=== PATIENT | male | born 2000 | race Caucasian/White ===

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

== ENCOUNTER 2018-11-29 18:21 | Emergency (ER) | payer OTHER ==
--- OUTSIDE RECORDS SUMMARY | 2018-11-29 18:31 | XMS REPORT | Summary of Care ---
:2000 Author Organization [facility] Address [address] [facility] [address] [place] [address] Care Team Providers Name Role Phone None, [place] Primary Care Provider Unavailable Reason for Visit Reason Comments Follow Up here for 4 mnth follow up; denies any complaints; things going good. Encounter Details Date Type Department Care Team Description 11/09/2018 Office Visit [facility] Kris Hope, [facility] [address] [facility] (Primary Dx) [address] [place], [place] [id number] [place] [address] [phone] Allergies Active Allergy Reactions Severity Noted Date Comments No Known Allergies Other 02/18/2008 documented as of this encounter (statuses as of 11/09/2018) Medications Medication Sig Dispensed Refills Start Date End Date Status venlafaxine Take 1 Cap 90 Cap 3 11/09/2018 Active (EFFEXOR XR) 75 by mouth MG Oral CAPSULE DAILY. SR 24 HRIndications: Anxiety and depression venlafaxine Take 1 Cap 120 Cap 0 07/13/2018 11/09/2018 Discontinued (EFFEXOR XR) 75 by mouth (Reorder) MG Oral CAPSULE DAILY. SR 24 HRIndications: Anxiety and depression documented as of this encounter (statuses as of 11/09/2018) Active Problems Problem Noted Date Varicella without mention of complication 05/14/2009 Migraine headache 10/15/2008 Attention deficit disorder with hyperactivity(314.01) 10/31/2005 Anxiety and depression documented as of this encounter (statuses as of 11/09/2018) Resolved Problems Problem Noted Date Resolved Date Appendicitis, unqualified 02/18/2008 09/24/2010 documented as of this encounter (statuses as of 11/09/2018) Immunizations Name Administration Dates Next Due DTAP Vaccine 11/26/2002, 02/01/1999, 1998, 1998 HIB 02/01/1999, 1998, 1998 Hepatitis A Vaccine Peds 09/24/2010, 05/14/2009 Hepatitis B Vaccine 02/01/1999, 1998, 1998 MENINGOCOCCAL CONJUGATE VACCINE 05/14/2009 MMR VACCINE 04/07/2005, 11/26/2002 Polio - Inactivated Vaccine 11/26/2002, 08/25/1999, 1998, 1998 TDAP Vaccine 09/29/2009 Varicella Vaccine Live 09/29/2009, 08/25/1999 documented as of this encounter Social History Tobacco Use Types Packs/Day Years Used Date Never Smoker Smokeless Tobacco: Never Used Alcohol Use Drinks/Week oz/Week Comments No Sex Assigned at Date Recorded Not on file Job Start Date Occupation Industry Not on file Not on file Not on file Travel History Travel Start Travel End No recent travel history available. documented as of this encounter Last Filed Vital Signs Vital Sign Reading Time Taken Comments Blood Pressure 120/64 11/09/2018 7:16 AM EDT Pulse 76 11/09/2018 7:16 AM EDT Temperature - - Respiratory Rate - - Oxygen Saturation 100% 11/09/2018 7:16 AM EDT Inhaled Oxygen Concentration - - Weight 80 kg (176 lb 6.4 oz) 11/09/2018 7:16 AM EDT Height 172.7 cm (5' 8") 11/09/2018 7:16 AM EDT Body Mass Index 26.82 11/09/2018 7:16 AM EDT documented in this encounter Progress Notes Kris Hope, DO - 11/09/2018 7:20 AM EDT PATIENT: Earl Guerra : 2000 DATE OF SERVICE: 11/09/2018 CHIEF COMPLAINT: Chief Complaint Patient presents with Follow Up here for 4 mnth follow up; denies any complaints; things going good. Subjective HISTORY OF PRESENT ILLNESS: Earl Guerra is a 18-y.o. male. HPI Anxiety and depression: Doing excellent on effexor 75 mg No SI or HI Past Medical History: Diagnosis Date Anxiety and depression Appendicitis, unqualified 02/18/2008 Appendicitis, unqualified Attention deficit disorder with hyperactivity(314.01) 10-31-05 Family History Problem Relation Age of Onset Asthma Mother Current Outpatient Medications Medication Sig venlafaxine (EFFEXOR XR) 75 MG Oral CAPSULE SR 24 HR Take 1 Cap by mouth DAILY. No current facility-administered medications for this visit. Allergies Allergen Reactions Nka [No Known Allergies] Other Social History Socioeconomic History Marital status: Single Spouse name: Not on file Number of children: Not on file Years of education: Not on file Highest education level: Not on file Occupational History Not on file Social Needs Financial resource strain: Not on file Food insecurity: Worry: Not on file Inability: Not on file Transportation needs: Medical: Not on file Non-medical: Not on file Tobacco Use Smoking status: Never Smoker Smokeless tobacco: Never Used Substance and Sexual Activity Alcohol use: No Drug use: No Sexual activity: Yes Partners: Female Lifestyle Physical activity: Days per week: Not on file Minutes per session: Not on file Stress: Not on file Relationships Social connections: Talks on phone: Not on file Gets together: Not on file Attends mormon service: Not on file Active member of club or organization: Not on file Attends meetings of clubs or organizations: Not on file Relationship status: Not on file Intimate partner violence: Fear of current or ex partner: Not on file Emotionally abused: Not on file Physically abused: Not on file Forced sexual activity: Not on file Other Topics Concern Not on file Social History Narrative 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 Neurological: Negative for dizziness. Objective PHYSICAL EXAM: VITALS: BP 120/64 (BP Location: Left arm, Patient Position: Sitting) | Pulse 76 | Ht 5' 8" (1.727m) | Wt 176 lb 6.4 oz (80 kg) | SpO2 100% | BMI 26.82 kg /m Body mass index is 26.82 kg/m. Physical Exam Constitutional: He appears well-developed and well-nourished. No distress. Cardiovascular: Normal rate. Skin: He is not diaphoretic. Psychiatric: He has a normal mood and affect. His behavior is normal. Judgment and thought content normal. ASSESSMENT / IMPRESSION: ICD-9-CM ICD-10-CM 1. Anxiety and depression 300.00 F41.9 venlafaxine (EFFEXOR XR) 75 MG Oral CAPSULE SR 24 HR 311 F32.9 Plan Doing very well Told I am leaving [facility] and he can follow up with new doctor in 1 year. At that time discussion tocome off medication can also take place if doing well Author: Kris Hope DO 11/09/2018 07:32 documented in this encounter Plan of Treatment Health Maintenance Due Date Last Done Comments HPV IMMUNIZATION SERIES (1 - Male 2013 3-dose series) HIV SCREENING 06/09/2019 Postponed from 2013 (Patient refused) INFLUENZA VACCINE (#1) 2019 Postponed from 12/02/2018 (Patient refused) DEPRESSION SCREENING 06/08/2020 Postponed from 2010 (Other) MENINGOCOCCAL VACCINE IMM Aged Out 05/14/2009 No longer eligible based on patient's age to complete this topic PNEUMOCOCCAL 0-64 YRS Aged Out No longer eligible based on patient's age to complete this topic documented as of this encounter Goals Goal Patient Goal Associated Recent Patient-Stated? Author Type Problems Progress Depression Depression No Kris Hope screen (PHQ-9) DO Dania total score < 5 Note: This is an individualized treatment (depression) goal for Earl Mamadou Kimmiejerry: Displayed above is your goal for a depression screening (PHQ-9) score that would indicate good control of your depression. Keep a regular sleep schedule Lifestyle No Kris Hope DO Note: This is an individualized lifestyle goal for Earl Mamadou Guerra: Please maintain a regular sleep schedule. This may help with some symptoms of depression. Take all prescribed medications as directed Self-management No Kris Hope DO Note: This is an individualized self-management goal for Earl Mamadouedwige Guerra: Please take all prescribed medications as directed. 1. Do not skip doses. If you cannot afford your medications, talk with your doctor. 2. Use a pill reminder system such as a pill box if needed. Your pharmacist can help you with this. 3. Contact your Pharmacy 5 days before your medication runs out. If you cannot take your medications for any reasons, talk with your doctor. 4. Please bring all of your medication bottles and inhalers (or a list of all your medications/inhalers) with you to every visit. Potential barriers to meeting all of your care plan goals will continue to be addressed on an ongoing basis. documented as of this encounter Results Not on filedocumented in this encounter Visit Diagnoses Diagnosis Anxiety and depression - Primary Dysthymic disorder documented in this encounter Insurance Payer Benefit Plan / Subscriber ID Effective Dates Phone Address Type Group [employer] [facility] xxxxxxxxxxx 2018-Present [employer] 4 (Work) documented as of this encounter
[2018-11-29] MEDS ORDERED: Ondansetron ODT TAB* 4 MG SL ONE (20:04)
[2018-11-29] MEDS ORDERED: Acetaminophen TAB* 325 MG PO ONE (20:04)
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
[2018-11-29 20:41] VITALS: BP 0/0
== END 2018-11-29 20:39 | disposition home or self-care (01) ==
LOC: ED 18:21
DX: S06.0X9A Concussion with loss of consciousness of unspecified duration, initial encounter (principal); V49.40XA Driver injured in collision with unspecified motor vehicles in traffic accident, initial encounter; Y92.410 Unspecified street and highway as the place of occurrence of the external cause; Z79.899 Other long term (current) drug therapy
CPT/HCPCS: 70450; 99282; A9270-GY

== ENCOUNTER 2019-07-21 15:29 | Emergency (ER) | payer OTHER ==
--- OUTSIDE RECORDS SUMMARY | 2019-07-21 15:53 | XMS REPORT | Summary of Care ---
:[address] [facility] Address [address] [facility] [address] [place] [address] Care Team Providers Name Role Phone Crys Rosenthal Primary Care Provider Reason for Visit Reason Comments Cough with congestion starting last night, productive with clear mucus Body Aches on and off for 2 days Encounter Details Date Type Department Care Team Description 06/19/2019 Office Visit [facility] PAKristen (Primary Dx) [address] [place] [address] [place] [address] [phone] Allergies Active Allergy Reactions Severity Noted Date Comments No Known Allergies Other 02/18/2008 documented as of this encounter (statuses as of 06/19/2019) Medications Medication Sig Dispensed Refills Start Date End Date Status venlafaxine (EFFEXOR Take 1 Cap by 90 Cap 3 04/15/2019 Active XR) 150 MG Oral CAPSULE mouth DAILY. SR 24 HRIndications: Anxiety and depression documented as of this encounter (statuses as of 06/19/2019) Active Problems Problem Noted Date Varicella without mention of complication 05/14/2009 Migraine headache 10/15/2008 Attention deficit disorder with hyperactivity(314.01) 10/31/2005 Anxiety and depression documented as of this encounter (statuses as of 06/19/2019) Resolved Problems Problem Noted Date Resolved Date Appendicitis, unqualified 02/18/2008 09/24/2010 documented as of this encounter (statuses as of 06/19/2019) Immunizations Name Administration Dates Next Due DTAP Vaccine 11/26/2002, 02/01/1999, 1998, 1998 HIB 02/01/1999, 1998, 1998 Hepatitis A Vaccine Peds 09/24/2010, 05/14/2009 Hepatitis B Vaccine 02/01/1999, 1998, 1998 Influenza (IM) Preservative Free 01/11/2019 MENINGOCOCCAL CONJUGATE VACCINE 05/14/2009 MMR VACCINE 04/07/2005, 11/26/2002 Polio - Inactivated Vaccine 11/26/2002, 08/25/1999, 1998, 1998 TDAP Vaccine 09/29/2009 Varicella Vaccine Live 09/29/2009, 08/25/1999 documented as of this encounter Social History Tobacco Use Types Packs/Day Years Used Date Never Smoker Smokeless Tobacco: Never Used Alcohol Use Drinks/Week oz/Week Comments No Social Isolation Answer Date Recorded In a typical week, how many times do you talk on the Three times a week 04/15 phone with family, friends, or neighbors? How often do you get together with friends or Twice a week 04/15/2019 relatives? How often do you attend amish or cheondoism Never 04/15/2019 services? Do you belong to any clubs or organizations such as No 04/15/2019 amish groups, unions, fraternal or athletic groups, or school groups? How often do you attend meetings of the clubs or Never 04/15/2019 organizations you belong to? Are you now , , , , Not asked never or living with a partner? Physical Activity Answer Date Recorded On average, how many days per week do you engage in moderate to 2 days 2019 strenuous exercise (like walking fast, running, jogging, dancing, swimming, biking, or other activities that cause a light or heavy sweat)? On average, how many minutes do you engage in exercise at this 30 min 2019 level? Stress Answer Date Recorded Do you feel stress - tense, restless, nervous, or anxious, Not at all 2019 or unable to sleep at night because your mind is troubled all the time - these days? Financial Resource Strain Answer Date Recorded How hard is it for you to pay for the very basics like Not hard at all 2019 food, housing, medical care, and heating? Intimate Partner Violence Answer Date Recorded Within the last year, have you been afraid of your partner or No 04/15/2019 ex-partner? Within the last year, have you been humiliated or emotionally No 04/15/2019 abused in other ways by your partner or ex-partner? Within the last year, have you been kicked, hit, slapped, or No 04/15/2019 otherwise physically hurt by your partner or ex-partner? Within the last year, have you been raped or forced to have any No 04/15/2019 kind of sexual activity by your partner or ex-partner? Food Insecurity Answer Date Recorded Within the past 12 months, you worried that your food would Never true 2019 run out before you got money to buy more. Within the past 12 months, the food you bought just didn't Never true 2019 last and you didn't have money to get more. Transportation Needs Answer Date Recorded In the past 12 months, has lack of transportation kept you from No 04/15/2019 medical appointments or from getting medications? In the past 12 months, has lack of transportation kept you from No 04/15/2019 meetings, work, or getting things needed for daily living? Sex Assigned at Date Recorded Not on file documented as of this encounter Last Filed Vital Signs Vital Sign Reading Time Taken Comments Blood Pressure 138/72 06/19/2019 3:06 PM EDT Pulse 90 06/19/2019 3:06 PM EDT Temperature 36.8 06/19/2019 3:06 PM EDT C (98.3 F) Respiratory Rate - - Oxygen Saturation 98% 06/19/2019 3:06 PM EDT Inhaled Oxygen Concentration - - Weight 82.1 kg (181 lb) 06/19/2019 3:06 PM EDT Height 172.7 cm (5' 8") 06/19/2019 3:06 PM EDT Body Mass Index 27.52 06/19/2019 3:06 PM EDT documented in this encounter Patient Instructions Patient InstructionsKeya Rivera PA-C - 06/19/2019 3:00 PM EDTDiscussed with patient, most likely viral cold, no antibiotics needed right now Recommend OTC cold/sinus medication Avoid creamy foods and drink Rest, gargle with warm salt water Push water, soup, juice, tea with honey/lemon OTC Tylenol/Ibuprofen for fever/pain Call if not improving or with any questions or concerns Wrote note out of work today and tomrrow documented in this encounter Progress Notes Keya Rivera PA-C - 06/19/2019 3:00 PM EDT PATIENT: Earl Guerra : 2000 DATE OF SERVICE: 06/19/2019 REFERRING PRACTITIONER: Self-Referred PRIMARY CARE PROVIDER: Crys Rosenthal Accompanied by girlfriend CHIEF COMPLAINT: Chief Complaint Patient presents with ? Cough with congestion starting last night, productive with clear mucus ? Body Aches on and off for 2 days Subjective HISTORY OF PRESENT ILLNESS: Earl Guerra is a 18-y.o. male who presents cough -- clear sputum, chest congestion x 1day Also intermittent body aches x 2 days Has not taken any OTC cold meds or analgesics He told coworker that his girl friend has cold. Coworker told supervisor ditching, supervisor ditching told patient togo home and get note to return to work Home heat is hot, forced air, not using humidifier Denies fever, chills, nausea, vomiting, diarrhea, chest pains, SOB Past Medical History: Diagnosis Date ? Anxiety and depression ? Appendicitis, unqualified 02/18/2008 ? Appendicitis, unqualified ? Attention deficit disorder with hyperactivity(314.01) 10-31-05 Past Surgical History: Procedure Laterality Date ? APPENDECTOMY Family History Problem Relation Age of Onset ? Asthma Mother Current Outpatient Medications Medication Sig ? venlafaxine (EFFEXOR XR) 150 MG Oral CAPSULE SR 24 HR Take 1 Cap by mouth DAILY. No current facility-administered medications for this visit. Allergies Allergen Reactions ? Nka [No Known Allergies] Other Social History Socioeconomic History ? Marital status: Single Spouse name: Not on file ? Number of children: Not on file ? Years of education: Not on file ? Highest education level: Not on file Occupational History ? Not on file Social Needs ? Financial resource strain: Not hard at all ? Food insecurity Worry: Never true Inability: Never true ? Transportation needs Medical: No Non-medical: No Tobacco Use ? Smoking status: Never Smoker ? Smokeless tobacco: Never Used Substance and Sexual Activity ? Alcohol use: No ? Drug use: No ? Sexual activity: Yes Partners: Female Lifestyle ? Physical activity Days per week: 2 days Minutes per session: 30 min ? Stress: Not at all Relationships ? Social connections Talks on phone: Three times a week Gets together: Twice a week Attends cheondoism service: Never Active member of club or organization: No Attends meetings of clubs or organizations: Never Relationship status: Not on file ? Intimate partner violence Fear of current or ex partner: No Emotionally abused: No Physically abused: No Forced sexual activity: No Other Topics Concern ? Not on file Social History Narrative Work at [employer] REVIEW OF SYSTEMS: Skin: negative skin lesions Eyes: negative visual blurring Ears/Nose/Throat: positive rhinorrhea. Negative sore throat, sinus pressure, post nasal drip Respiratory: positive cough Cardiovascular: negative chest pain Gastrointestinal: negative abdominal pain, constipation, diarrhea, nausea or vomiting Genitourinary: negative burning on urination, dysuria Musculoskeletal: positive body aches Neurologic: positive ADHD Psychiatric: positive depression and anxiety Hematologic/Lymphatic/Immunologic: negative allergies Endocrine: negative diabetes or hot flashes/sweats Objective PHYSICAL EXAMINATION: VITALS: BP 138/72 | Pulse 90 | Temp 98.3 F (36.8 C) (Tympanic) | Ht 5' 8" (1.727 m) | Wt 181 lb (82.1 kg) | SpO2 98% | BMI 27.52 kg/m Body mass index is 26.91 kg/m. General appearance: alert, mild distress, cooperative, oriented times 3 Skin: Skin color, texture, turgor normal. No rashes or lesions. Head: Normocephalic. No masses, lesions, tenderness or abnormalities Eyes: conjunctivae/corneas clear. PERRL, EOM's intact. Ears: TMs and canals normal bilaterally Nose/Sinuses: positive findings: mucosa erythematous, clear rhinorrhea Oropharynx: positive findings: mild oropharyngeal erythema, post nasal drip present Neck: Neck supple, FROM. No cervical or supraclavicular adenopathy. Lungs: Lungs clear. Chest symmetrical. Normal breath sounds. Heart: RRR. No murmur, clicks or gallops. No peripheral edema . IMPRESSION: ICD-9-CM ICD-10-CM 1. Common cold virus 460 J00 Plan PLAN: Discussed with patient, most likely viral cold, no antibiotics needed right now Recommend OTC cold/sinus medication Avoid creamy foods and drink Rest, gargle with warm salt water Push water, soup, juice, tea with honey/lemon OTC Tylenol/Ibuprofen for fever/pain Call if not improving or with any questions or concerns Wrote note out of work today and tomrrow Author: Keya Rivera PA-C 06/19/2019 15:06 documented in this encounter Plan of Treatment Health Maintenance Due Date Last Done Comments HPV IMMUNIZATION SERIES (1 2009 - Male 2-dose series) HIV SCREENING 2013 DTaP/Tdap/Td Vaccines (6 - 09/30/2019 09/29/2009, 11/26/2002, Tdap) 02/01/1999, Additional history exists DEPRESSION SCREENING 06/08/2020 Postponed from 2010 (Other) MENINGOCOCCAL VACCINE IMM Aged Out 05/14/2009 No longer eligible based on patient's age to complete this topic HEPATITIS A IMMUNIZATION Completed 09/24/2010, 05/14/2009 SERIES INFLUENZA VACCINE Completed 01/11/2019 PNEUMOCOCCAL 0-64 YRS Aged Out No longer eligible based on patient's age to complete this topic documented as of this encounter Goals Goal Patient Goal Associated Recent Patient-Stated? Author Type Problems Progress Depression Depression No Kris Hope screen (PHQ-9) J, DO total score < 5 Note: This is an individualized treatment (depression) goal for Earl Guerra: Displayed above is your goal for a depression screening (PHQ-9) score that would indicate good control of your depression. Keep a regular sleep schedule Lifestyle No Kris Hope, DO Note: This is an individualized lifestyle goal for Earl Guerra: Please maintain a regular sleep schedule. This may help with some symptoms of depression. Take all prescribed medications as directed Self-management No Kris Hope DO Note: This is an individualized self-management goal for Earl Guerra: Please take all prescribed medications as [...] filedocumented in this encounter Visit Diagnoses Diagnosis Common cold virus Acute nasopharyngitis (common cold) documented in this encounter Insurance Payer Benefit Plan / Subscriber ID Effective Dates Phone Address Type Group [employer] [facility] [id number] 2015-Present [employer] [phone] [id number] ([facility]) [place] [address] documented as of this encounter
--- NOTE | 2019-07-21 16:45 | ED ---
Abdominal Pain/Male - HPI Summary HPI Summary: Patient complains of right lower quadrant pain 3 days. Pain described as constant, worse with movement and eating, at worse 10/10, currently 3/10. Associated severe nausea. Nauseous after eating solid foods, able to tolerate fluids. History of appendectomy 10 years ago. Denies fever, cough, sore throat , CP, SOB, V/D, change in urine, change in BM, penile or testicular symptoms. Medical history is anxiety. Abdominal surgical history is appendectomy. - History of Current Complaint Chief Complaint: EDAbdPain Stated Complaint: ABDOMINAL PAIN PER PT Time Seen by Provider: 07/21/19 16:40 Hx Obtained From: Patient Onset/Duration: Gradual Onset, Lasting Days Timing: Constant Severity Initially: Severe Severity Currently: Mild Pain Intensity: 2 Pain Scale Used: 0-10 Numeric Location: Discrete At: RLQ Radiates: No Character: Sharp Aggravating Factor(s): Food, Movement Alleviating Factor(s): Position Associated Signs And Symptoms: Positive: Decreased Appetite, Nausea - Allergies/Home Medications Allergies/Adverse Reactions: Allergies Allergy/AdvReac Type Severity Reaction Status Date / Time No Known Allergies Allergy Verified 11/29/18 18:25 Home Medications: Home Medications Ondansetron ODT TAB* [Zofran 4 MG Odt TAB*] 8 mg PO Q6H PRN #15 tab.odt [Rx] Venlafaxine HCl [Venlafaxine HCl ER] 75 mg PO DAILY 11/29/18 [History Confirmed 11/29/18] HYDROcodone/ACETAMIN 5-325 MG* [[place] 5-325 TAB*] 1 tab PO Q6H PRN 2 Days #8 tab MDD 4 tabs 07/21/19 [Rx] Ondansetron ODT TAB* [Zofran 4 MG Odt TAB*] 4 mg PO Q8H PRN 4 Days #14 tab.odt 07/21/19 [Rx] Sulfamethox/Trimethoprim DS* [Bactrim DS 800/160 TAB*] 1 tab PO BID 10 Days #20 tab 07/21/19 [Rx] metroNIDAZOLE [Flagyl 500 MG TAB] 500 mg PO TID 10 Days #30 tab 07/21/19 [Rx] PMH/Surg Hx/FS Hx/Imm Hx Endocrine/Hematology History: Denies: Hx Diabetes, Hx Thyroid Disease Cardiovascular History: Denies: Hx Hypercholesterolemia, Hx Hypertension, Hx Pacemaker/ICD, Hx Peripheral Vascular Disease History: Denies: Hx Renal Disease Musculoskeletal History: Denies: Hx Arthritis, Hx Osteoporosis Sensory History: Denies: Hx Cataracts, Hx Contacts or Glasses, Hx Glaucoma, Hx Hearing Aid Opthamlomology History: Denies: Hx Cataracts, Hx Contacts or Glasses, Hx Glaucoma EENT History: Denies: Hx Deafness Neurological History: Reports: Other Neuro Impairments/Disorders - H/O OCCULAR MIGRAINES Denies: Hx Headaches, Hx Seizures, Hx Transient Ischemic Attacks (TIA) Psychiatric History: Denies: Hx Anxiety, Hx Depression, Hx Panic Disorder - Surgical History Surgery Procedure, Year, and Place: APPENDECTOMY Infectious Disease History: No Infectious Disease History: Denies: History Other Infectious Disease, Traveled Outside the [place] in Last 30 Days - Family History Known Family History: Positive: Other - When asked FHx, patient responds "nothing" Negative: Cardiac Disease - Social History Alcohol Use: None Hx Substance Use: No Substance Use Type: Reports: None Hx Tobacco Use: No Smoking Status (MU): Never Smoked Tobacco Review of Systems Constitutional: Negative Eyes: Negative ENT: Negative Cardiovascular: Negative Respiratory: Negative Positive: Abdominal Pain, Nausea Genitourinary: Negative Musculoskeletal: Negative Skin: Negative Neurological/Mental Status: Negative Psychological: Normal All Other Systems Reviewed And Are Negative: Yes Physical Exam - Summary Physical Exam Summary: Palpation of suprapubic and right upper quadrant causes pain in right lower quadrant. Right lower quadrant very tender to palpation. Triage Information Reviewed: Yes Vital Signs On Initial Exam: Initial Vitals Temp Pulse Resp BP Pulse Ox 97.7 F 113 18 149/101 97 07/21/19 15:30 07/21/19 15:30 07/21/19 15:30 07/21/19 15:30 07/21/19 15:30 Vital Signs Reviewed: Yes Appearance: Positive: Well-Appearing Skin: Positive: Warm Head/Face: Positive: Normal Head/Face Inspection Eyes: Positive: Normal Neck: Positive: Supple Respiratory/Lung Sounds: Positive: Clear to Auscultation Cardiovascular: Positive: Normal Abdomen Description: Positive: Other: Musculoskeletal: Positive: Normal Neurological: Positive: Normal Psychiatric: Positive: Normal AVPU Assessment: Alert - [place] Coma Scale Best Eye Response: 4 - Spontaneous Best Motor Response: 6 - Obeys Commands Best Verbal Response: 5 - Oriented Coma Scale Total: 15 Procedures - Sedation Patient Received Moderate/Deep Sedation with Procedure: No Diagnostics - Vital Signs Vital Signs Temp Pulse Resp BP Pulse Ox 07/21/19 15:30 97.7 F 113 18 149/101 97 - Laboratory Result Diagrams: 07/21/19 17:00 07/21/19 17:00 Lab Statement: Any lab studies that have been ordered have been reviewed, and results considered in the medical decision making process. Abdominal Pain Male Course/Dx - Course Course Of Treatment: Patient complains of right lower quadrant pain 3 days. Pain described as constant, worse with movement and eating, at worse 10/10, currently 3/10. Associated severe nausea. Nauseous after eating solid foods, able to tolerate fluids. History of appendectomy 10 years ago. Denies fever, cough, sore throat, CP, SOB, V/D, change in urine, change in BM, penile or testicular symptoms. Medical history is anxiety. Abdominal surgical history is appendectomy. Vital signs within normal limits. Labs unremarkable. Ultrasound of gallbladder negative. CT abdomen and pelvis positive for mild nonspecific fat stranding adjacent to the ascending colon and hepatic flexure. Findings could suggest mild colitis. Patient discharged with by mouth Bactrim and Flagyl. - Diagnoses Provider Diagnoses: Colitis - Critical Care Time Critical Care Statement: Critical care time is provided exclusive of any time spent performing procedures. Discharge ED - Sign-Out/Discharge Documenting (check all that apply): Patient Departure - Discharge Plan Condition: Stable Disposition: HOME Prescriptions: HYDROcodone/ACETAMIN 5-325 MG* [[place] 5-325 TAB*] 1 tab PO Q6H PRN 2 Days #8 tab MDD 4 tabs PRN Reason: Pain metroNIDAZOLE [Flagyl 500 MG TAB] 500 mg PO TID 10 Days #30 tab Ondansetron ODT TAB* [Zofran 4 MG Odt TAB*] 4 mg PO Q8H PRN 4 Days #14 tab.odt PRN Reason: Nausea Sulfamethox/Trimethoprim DS* [Bactrim DS 800/160 TAB*] 1 tab PO BID 10 Days #20 tab Patient Education Materials: Colitis (ED) Referrals: Kris Hope DO [Primary Care Provider] - Additional Instructions: Take both antibiotics as directed. Take Zofran as directed if needed for nausea. Take hydrocodone as directed if needed for pain. Return to the ED for any new or worsening symptoms. - Billing Disposition and Condition Condition: STABLE Disposition: Home
[2019-07-21] MEDS ORDERED: NS 0.9% 1000 ML** 1,000 ML IV ONE (16:52)
[2019-07-21] MEDS ORDERED: Ondansetron INJ* 2 MG/ML VIAL IV ONE ×2 (16:52→17:49)
[2019-07-21 17:07] LABS: ABS Basophils 0.1 10^3/ul (0-0.2); ABS Eosinophils 0.6 10^3/ul (0-0.6); ABS Lymphocytes 2.4 10^3/ul (1.0-4.8); ABS Monocytes 0.7 10^3/ul (0-0.8); ABS Neutrophils 4.3 10^3/ul (1.5-7.7); Eosinophil % 7.7 %; Hematocrit 43 % (42-52); Hemoglobin 14.6 g/dL (14.0-18.0); Lymphocyte % 29.4 %; Mean Corpuscular HGB Conc 34 g/dL (31-36); Mean Corpuscular Hemoglobin 31 pg (27-31); Mean Corpuscular Volume 89 fL (80-94); Mean Platelet Volume 8.5 fL (7.4-10.4); Nucleated Red Blood Cells % 0.1; Platelet Count 255 10^3/uL (150-450); Red Blood Count 4.76 10^6 /uL (4.18-5.48); Red Cell Distribution Width 13 % (10-15)
[2019-07-21 17:24] LABS: Albumin 4.5 g/dL (3.2-5.2); Albumin/Globulin Ratio 1.6 (1-3); BUN/Creatinine Ratio 12.8 (8-20); C Reactive Protein 7.51 mg/L (<8.01); Calcium 9.3 mg/dL (8.6-10.3); EGFR African American 153.5 (>60); EGFR Non-African American 126.9 (>60); Globulin 2.8 g/dL (2-4); Potassium 3.9 mmol/L (3.5-5.0); Total Bilirubin 0.4 mg/dL (0.2-1.0); Total Protein 7.3 g/dL (6.4-8.9)
[2019-07-21] MEDS ORDERED: Morphine 4 MG/ML VIAL (1 ml) 4 MG/ML VIAL IV ONE (17:49)
[2019-07-21] MEDS ORDERED: Iohexol 300* (CONTRAST) 10 ML SDV IV ONE (17:56)
[2019-07-21] MEDS ORDERED: diPHENhydraMINE IV* 50 MG/ML 1 ml VIAL (BENADRYL) IV ONE (19:23)
[2019-07-21] MEDS ORDERED: metroNIDAZOLE TAB* 250 MG PO ONE (19:25)
[2019-07-21] MEDS ORDERED: Ondansetron ODT TAB* 4 MG PO ONE (19:51)
[2019-07-21] MEDS ORDERED: oxyCODONE TAB* 5 MG TAB PO ONE (19:51)
[2019-07-21 20:21] VITALS: BP 126/79
== END 2019-07-21 20:20 | disposition home or self-care (01) ==
LOC: ED 15:29
DX: K52.9 Noninfective gastroenteritis and colitis, unspecified (principal); R10.31 Right lower quadrant pain; Z79.899 Other long term (current) drug therapy; R11.0 Nausea
CPT/HCPCS: 36415; 74177; 76705; 80053; 83605; 83690; 85025; 86140; 96374; 96375; 99283; A9270-GY; J2270; J2405; Q9967